=== PATIENT | female | born 1960 | race Two or more races ===

== ENCOUNTER 2019-02-06 21:29 | Emergency (ER) | payer SELFPAY ==
[~2019-02-06] VITALS: Ht 157.5 cm; Wt 50.0 kg
[2019-02-06] MEDS ORDERED: ACET-2247 PO (21:48)
[2019-02-06] MEDS ORDERED: METH500T7 PO (21:48)
[2019-02-06] MEDS ORDERED: DIPH30C TP (21:57)
[2019-02-06] MEDS ORDERED: DiphenhydrAMINE HCL 25 MG CAPSULE PO ONE (22:00)
[2019-02-06] MEDS ORDERED: MethylPREDNISolone SOD SUCC 125 MG/2 ML VIAL IVP ONE (23:45)
[2019-02-06] MEDS ORDERED: FAMOTIDINE 10 MG/ML 2 ML VIAL IVP ONE (23:45)
[2019-02-06] MEDS ORDERED: DiphenhydrAMINE HCL 50 MG/ML VIAL IVP ONE (23:45)
[2019-02-07 01:02] VITALS: BP 120/64
== END 2019-02-07 01:18 | disposition home or self-care (01) ==
LOC: EMS 21:31
DX: L50.9 Urticaria, unspecified (principal)
CPT/HCPCS: 96374; 96375; 99283; J1200; J2930; J3490